=== PATIENT | male | born 1945 | race Caucasian/White ===

== ENCOUNTER 2020-09-25 08:52 | Outpatient (CLI) | payer MEDICARE, OTHER, SELFPAY ==
--- NOTE | ~2020-09-25 | CT_ITS ---
EXAMINATION: CT soft tissue neck w con EXAM DATE: 09/25/2020 10:06 INDICATION: Right lateral neck swelling over 6 months TECHNIQUE: Spiral CT of the neck was performed following intravenous injection of 75 mL Omnipaque 350 . Axial, coronal and sagittal images were reviewed. The dose-length product (DLP) for this examinat ion was 503.51 mGy-cm. The exposure was tailored according to patient size (auto mA exposure control ), and iterative reconstruction (ASIR) was used as additional dose reduction technique. There is no prior study for comparison. FINDINGS: There is a heterogeneously enhancing mass centered posterior to the right carotid bifurcati on, most likely a pathologically enlarged lymph node, measuring 5.4 x 3.1 x 7 cm. Paraganglioma typic ally would be expected to demonstrate more robust enhancement. No other cervical masses. The thyroid gland is unremarkable. The submandibular and parotid glands a re symmetric. The superior mediastinum is unremarkable. The airway is unremarkable. Parapharyng eal and pre-glottic fat planes are preserved. The opacified vasculature is patent. The orbits are unremarkable. Visualized sinuses and mastoid air cells are well aerated. Some advanced right mid cervical facet arthropathy. Lung apices are clear. IMPRESSION: Right neck mass most likely pathologically enlarged lymph node from malignancy, but ultra sound-guided biopsy recommended. Reviewed, dictated and finalized at location A. IMPRESSION: Right neck mass most likely pathologically enlarged lymph node from malignancy, but ultrasound-guided biopsy recommended.
[2020-09-25 09:57] LABS: Estimated Glomerular Filt Rate > 60
== END 2020-09-25 08:53 | disposition home or self-care (01) ==
LOC: ANHIMG 09:03
PROVIDERS: PCP Family Medicine; Visit Provider Family Medicine
DX: R22.1 Localized swelling, mass and lump, neck (principal)
CPT/HCPCS: 70491; Q9967

== ENCOUNTER 2020-10-10 12:54 | Outpatient (CLI) | payer MEDICARE, OTHER, SELFPAY ==
--- NOTE | ~2020-10-10 | US_ITS ---
EXAMINATION: US biopsy lymph node DATE: 10/10/2020 14:02 INDICATION: Right neck mass. TECHNIQUE: The procedure including the risks and benefits was discussed with the patient. Risks discu ssed included bleeding and infection. The patient understood the risks and agreed to proceed. The sk in overlying the right neck posterior inferior to the angle of the mandible was prepped and draped in usual sterile fashion. Anesthetic was administered with 1% lidocaine subcutaneously. An 14 gauge c ore biopsy needle was advanced under continuous ultrasound observation to the lesion of interest. 5 core biopsy specimens were obtained at 2 placed in formalin and 3 in RPMI media. The needle was juan m stefano and the entry site was cleaned and dressed. Post procedure ultrasound demonstrated no hemorrhage . FINDINGS: Ultrasound images demonstrate a 6.7 x 5.7 x 2.8 cm hypoechoic mass at the region of concern corresponding to the size and location of the mass on prior CT performed 09/25/2020. Subsequent image demonstrates the biopsy needle advanced into the mass. IMPRESSION: 1. Successful Ultrasound-guided biopsy of a 6.7 cm right neck mass suspicious for either lymphoma or metastatic lymphadenopathy. Reviewed, dictated and finalized at location A. IMPRESSION: 1. Successful Ultrasound-guided biopsy of a 6.7 cm right neck mass suspicious f or either lymphoma or metastatic lymphadenopathy.
== END 2020-10-10 12:55 | disposition home or self-care (01) ==
LOC: ANHIMG 12:57
PROVIDERS: PCP Family Medicine; Visit Provider Surgery
DX: R22.1 Localized swelling, mass and lump, neck (principal)
CPT/HCPCS: 38505; 76942; 88305; 88342

== ENCOUNTER 2020-10-20 02:40 | Day surgery (SDC) | payer MEDICARE, OTHER, SELFPAY ==
[2020-10-13 14:08] VITALS: BMI 26.5
--- NOTE | 2020-10-20 06:30 | PM.HPGS ---
History of Present Illness History of Present Illness Consent: Risks, benefits, and alternatives have been discussed and questions answered. Patient agrees to proceed with procedure. Chief complaint: dysphagia Narrative: Nicola Pavon is a 75 year old male Who has had dysphagia for solid food for the last couple months. Lately he can tolerate serial scrambled eggs and other soft foods such as soup. He also was found to have a mass in his neck. Biopsies have been done that revealed it to be a schwannoma. Review of Systems Review of Systems: All systems reviewed & are unremarkable except as noted in HPI and below PMFSH Social History Social History Smoking status: Never smoker Alcohol intake: current Drinks per week: 2 Alcohol use details: beer Substance use: never Substance use type: does not use Living arrangements: with family Gender identity (if verbalized by the patient): Male Spiritual care concerns: No Agree to blood products: Yes Meds Home Medications and Allergies Home Medications Medication Instructions Recorded Confirmed Type No Home Medications 10/13/20 10/20/20 History Allergies Allergy/AdvReac Type Severity Reaction Status Date / Time No Known Allergies Allergy Verified 10/20/20 12:12 Exam Const: General: alert Orientation/consciousness: patient oriented x3 Resp: Auscultation: clear to auscultation bilaterally Cardio: Rhythm: regular rhythm GI: GI Palp: Yes Soft to palpation and No Tenderness to palpation present (GI) Neuro: General: patient oriented x3 Assessment and Plan Assessment and plan (1) Esophageal dysphagia: Code(s): R13.19 - Other dysphagia Status: Acute Assessment and Plan: EGD with possible biopsy or dilatation or cautery.
[2020-10-20 12:13] VITALS: BP 131/61; PULSE 85; RESP 18; TEMP 36.4; O2SAT 99; BMI 26.2
[2020-10-20] MEDS: LACTATED RINGERS 1,000 ML 150 ML IV CONT (12:30)
--- NOTE | 2020-10-20 12:30 | P.PNAN_ITS ---
Anes - Initial Pre Proc Eval Procedure: Operation Date: 10/20/20 13:30 Proposed Procedures p Esophagogastroduodenoscopy - Clemente Cody MD Date/Time: 10/20/20 12:30 Surgeon: Clemente oCdy MD Pre Op Diagnosis: dysphagia Patient Data Age: 75 Gender: M Height: 1.78 m Weight: 82.8 kg Last Vital Signs Temp 36.4 C 10/20/20 12:13 Pulse 85 10/20/20 12:13 Resp 18 10/20/20 12:13 BP 131/61 10/20/20 12:13 Pulse Ox 99 10/20/20 12:13 Allergies Allergy/AdvReac Type Severity Reaction Status Date / Time No Known Allergies Allergy Verified 10/20/20 12:12 Home Medications Medication Instructions Recorded Confirmed Type No Home Medications 10/13/20 10/20/20 History Patient hx anesthesia problems: none Family hx anesthesia problems: none [facility] Social History Social History Smoking status: Never smoker Alcohol intake: current Drinks per week: 2 Alcohol use details: beer Substance use: never Substance use type: does not use Living arrangements: with family Gender identity (if verbalized by the patient): Male Spiritual care concerns: No Agree to blood products: Yes Anes - Eval Final PreProcedure Day of Procedure 10/20/20 12:30 Patient weight: overweight Heart: regular rate and rhythm Lungs: clear to auscultation Airway: Mallampati scale class II Neurological: alert and oriented Last oral intake: >/= 8 hours ASA classification: II Emergent: no Anesthetic plan: proceed Anesthesia type and monitoring: general GIVS and standard monitoring Informed Consent: The patient's anesthetic plan and its attendant risks and benefits were discussed with the patient/family/POA. Questions were solicited and answers provided to the satisfaction of the patient/family/POA.
[2020-10-20 13:06] VITALS: BP 120/64; PULSE 62; RESP 25; O2SAT 97
[2020-10-20 13:16] VITALS: BP 124/76; PULSE 62; RESP 21; O2SAT 98
[2020-10-20 13:26] VITALS: BP 127/75; PULSE 64; RESP 18; O2SAT 99
== END 2020-10-20 13:44 | disposition home or self-care (01) ==
PROVIDERS: PCP Family Medicine; Visit Provider Internal Medicine Gastroenterology
PROC: 0DJ08ZZ Inspection of Upper Intestinal Tract, Via Natural or Artificial Opening Endoscopic (ICD-10-PCS; CPT 43235; principal; 2020-10-20 13:30)
DX: R13.19 Other dysphagia (principal); C15.5 Malignant neoplasm of lower third of esophagus
CPT/HCPCS: 43239; 88305; 88342; J2704; J7120

== ENCOUNTER 2022-04-16 00:22 | Day surgery (SDC) | payer MEDICARE, OTHER, SELFPAY ==
[2022-04-05 14:15] VITALS: BMI 29.6
--- NOTE | 2022-04-15 15:00 | PM.HPGS ---
History of Present Illness History of Present Illness Consent: Risks, benefits, and alternatives have been discussed and questions answered. Patient agrees to proceed with procedure. 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 He finishes treatment last year. He comes in now for reassessment for recurrent or persistent disease. Review of Systems Review of Systems: All systems reviewed & are unremarkable except as noted in HPI and below PMFSH Past Medical History Medical History Esophageal cancer, stage IA Peripheral neuropathy Social History Social History Smoking status: Never smoker Alcohol intake: current Drinks per week: 2 Alcohol use details: beer Substance use: never Substance use type: does not use Living arrangements: with family Occupation/Education: retired Gender identity (if verbalized by the patient): Male Sexual Orientation (if Verbalized by the Patient): Straight or Heterosexual Spiritual care concerns: No Agree to blood products: Yes Meds Home Medications and Allergies Home Medications Medication Instructions Recorded Confirmed Type trastuzumab 420 mg intravenous 250 mg IV .Every 3 weeks 03/30/22 04/05/22 History solution Allergies Allergy/AdvReac Type Severity Reaction Status Date / Time No Known Allergies Allergy Verified 04/05/22 14:14 Exam Const: General: alert Orientation/consciousness: patient oriented x3 Resp: Auscultation: clear to auscultation bilaterally Cardio: Rhythm: regular rhythm GI: GI Palp: Yes Soft to palpation and No Tenderness to palpation present (GI) Neuro: General: patient oriented x3 Assessment and Plan Assessment and plan (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
[2022-04-16 11:06] VITALS: BP 132/68; PULSE 77; RESP 20; TEMP 36.1; O2SAT 98
[2022-04-16] MEDS: LACTATED RINGERS 1,000 ML 150 ML IV CONT (11:10)
--- NOTE | 2022-04-16 11:52 | WPDANESEPPF ---
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 Patient Data Age: 76 Gender: M Height: 1.75 m Weight: 21.8 kg Last Vital Signs Temp 97.0 F L 04/16/22 11:06 Pulse 77 04/16/22 11:06 Resp 20 04/16/22 11:06 BP 132/68 04/16/22 11:06 Pulse Ox 98 04/16/22 11:06 O2 Del Method Room Air 04/16/22 11:06 Allergies Allergy/AdvReac Type Severity Reaction Status Date / Time No Known Allergies Allergy Verified 04/05/22 14:14 Home Medications Medication Instructions Recorded Confirmed Type trastuzumab 420 mg intravenous 250 mg IV .Every 3 weeks 03/30/22 04/05/22 History solution Patient hx anesthesia problems: none Family hx anesthesia problems: none Results Review: All pre-operative results and documents have been reviewed as part of the pre-operative evaluation. COUNTS INCLUDE 234 BEDS AT THE [facility] Past Medical History Medical History Esophageal cancer, stage IA Peripheral neuropathy Social History Social History Smoking status: Never smoker Alcohol intake: current Drinks per week: 2 Alcohol use details: beer Substance use: never Substance use type: does not use Living arrangements: with family Occupation/Education: retired Gender identity (if verbalized by the patient): Male Sexual Orientation (if Verbalized by the Patient): Straight or Heterosexual Spiritual care concerns: No Agree to blood products: Yes Anes - Eval Final PreProcedure Day of Procedure 04/16/22 11:52 Patient weight: obese Heart: regular rate and rhythm Lungs: clear to auscultation Airway: Mallampati scale class II Neurological: alert and oriented Last oral intake: >/= 8 hours ASA classification: III Emergent: no Anesthetic plan: proceed Anesthesia type and monitoring: general GIVS and standard monitoring Results Review: All pre-operative results and documents have been reviewed as part of the pre-operative evaluation. Informed Consent: The patient's anesthetic plan and its attendant risks and benefits were discussed with the patient/family/POA. Questions were solicited and answers provided to the satisfaction of the patient/family/POA.
[2022-04-16 12:50] VITALS: BP 145/79; PULSE 73; RESP 28; O2SAT 100
[2022-04-16 13:00] VITALS: BP 148/85; PULSE 75; RESP 24; O2SAT 98
[2022-04-16 13:10] VITALS: BP 148/77; PULSE 64; RESP 22; O2SAT 97
== END 2022-04-16 13:15 | disposition home or self-care (01) ==
PROVIDERS: PCP Family Medicine; Visit Provider Internal Medicine Gastroenterology
PROC: 0DJ08ZZ Inspection of Upper Intestinal Tract, Via Natural or Artificial Opening Endoscopic (ICD-10-PCS; CPT 43235; principal; 2022-04-16 12:30)
DX: Z08 Encounter for follow-up examination after completed treatment for malignant neoplasm (principal); K22.2 Esophageal obstruction; K44.9 Diaphragmatic hernia without obstruction or gangrene; Z85.01 Personal history of malignant neoplasm of esophagus; E66.9 Obesity, unspecified; Z68.30 Body mass index [BMI] 30.0-30.9, adult; Z92.21 Personal history of antineoplastic chemotherapy; Z92.3 Personal history of irradiation
CPT/HCPCS: 43249; 88305; C1726; J2704; J7120

== ENCOUNTER 2022-10-25 00:15 | Day surgery (SDC) | payer MEDICARE, OTHER, SELFPAY ==
[2022-10-13 10:21] VITALS: BMI 30.2
--- NOTE | 2022-10-25 06:45 | PM.HPGS ---
History of Present Illness History of Present Illness Consent: Risks, benefits, and alternatives have been discussed and questions answered. Patient agrees to proceed with procedure. 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 He has been treated by Dr. Kike Willis. A recent CT scan shows a possible recurrence in the distal esophagus. 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 Review of Systems Review of Systems: All systems reviewed & are unremarkable except as noted in HPI and below PMFSH Past Medical History Medical History Esophageal cancer, stage IA Peripheral neuropathy Social History Social History Smoking status: Never smoker Second hand tobacco smoke exposure: No Alcohol intake: current Drinks per week: 2 Alcohol use details: BEER Substance use: never Substance use type: does not use Living arrangements: with family Occupation/Education: retired Gender identity (if verbalized by the patient): Male Sexual Orientation (if Verbalized by the Patient): Straight or Heterosexual Spiritual care concerns: No Agree to blood products: Yes Meds Home Medications and Allergies Home Medications Medication Instructions Recorded Confirmed Type trastuzumab 420 mg intravenous 250 mg IV .EVERY 4 WEEKS 03/30/22 10/25/22 History solution Allergies Allergy/AdvReac Type Severity Reaction Status Date / Time No Known Allergies Allergy Verified 10/25/22 12:52 Exam Const: General: alert Orientation/consciousness: patient oriented x3 Resp: Auscultation: clear to auscultation bilaterally Cardio: Rhythm: regular rhythm GI: GI Palp: Yes Soft to palpation and No Tenderness to palpation present (GI) Neuro: General: patient oriented x3 Assessment and Plan Assessment and plan (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
[2022-10-25 12:54] VITALS: BP 139/65; PULSE 78; RESP 17; TEMP 36.8; O2SAT 95; BMI 29.8
[2022-10-25] MEDS: LACTATED RINGERS 1,000 ML 150 ML IV CONT (13:03)
--- NOTE | 2022-10-25 13:04 | P.PNAN_ITS ---
Anes - Initial Pre Proc Eval Procedure: Operation Date: 10/25/22 14:15 Proposed Procedures p Esophagogastroduodenoscopy - Clemente Cody MD Date/Time: 10/25/22 13:04 Surgeon: Clemente Cody MD Pre Op Diagnosis: primary adenocarcinoma of distal third of esophagu Patient Data Age: 77 Gender: M Height: 1.78 m Weight: 94.3 kg Last Vital Signs Temp 36.8 C 10/25/22 12:54 Pulse 78 10/25/22 12:54 Resp 17 10/25/22 12:54 BP 139/65 10/25/22 12:54 Pulse Ox 95 10/25/22 12:54 O2 Del Method Room Air 10/25/22 12:54 Allergies Allergy/AdvReac Type Severity Reaction Status Date / Time No Known Allergies Allergy Verified 10/25/22 12:52 Home Medications Medication Instructions Recorded Confirmed Type trastuzumab 420 mg intravenous 250 mg IV .EVERY 4 WEEKS 03/30/22 10/25/22 History solution Patient hx anesthesia problems: none Family hx anesthesia problems: none Results Review: All pre-operative results and documents have been reviewed as part of the pre- operative evaluation. [facility] Past Medical History Medical History Esophageal cancer, stage IA Peripheral neuropathy Social History Social History Smoking status: Never smoker Second hand tobacco smoke exposure: No Alcohol intake: current Drinks per week: 2 Alcohol use details: BEER Substance use: never Substance use type: does not use Living arrangements: with family Occupation/Education: retired Gender identity (if verbalized by the patient): Male Sexual Orientation (if Verbalized by the Patient): Straight or Heterosexual Spiritual care concerns: No Agree to blood products: Yes Anes - Eval Final PreProcedure Day of Procedure 10/25/22 13:04 Patient weight: overweight Heart: regular rate and rhythm Lungs: clear to auscultation Airway: Mallampati scale class II Neurological: alert and oriented Last oral intake: >/= 8 hours ASA classification: III Emergent: no Anesthetic plan: proceed Anesthesia type and monitoring: general GIVS and standard monitoring Results Review: All pre-operative results and documents have been reviewed as part of the pre- operative evaluation. Informed Consent: The patient's anesthetic plan and its attendant risks and benefits were discussed with the patient/family/POA. Questions were solicited and answers provided to the satisfaction of the patient/family/POA.
[2022-10-25 14:32] VITALS: BP 132/86; PULSE 70; RESP 24; O2SAT 95
[2022-10-25 14:42] VITALS: BP 136/78; PULSE 70; RESP 22; O2SAT 99
[2022-10-25 14:52] VITALS: BP 142/79; PULSE 61; RESP 18; O2SAT 99
== END 2022-10-25 15:00 | disposition home or self-care (01) ==
PROVIDERS: PCP Family Medicine; Visit Provider Internal Medicine Gastroenterology
PROC: 0DJ08ZZ Inspection of Upper Intestinal Tract, Via Natural or Artificial Opening Endoscopic (ICD-10-PCS; CPT 43235; principal; 2022-10-25 14:15)
DX: K22.2 Esophageal obstruction (principal); C16.0 Malignant neoplasm of cardia; G62.9 Polyneuropathy, unspecified; Z79.899 Other long term (current) drug therapy
CPT/HCPCS: 43239; 88305; J2704; J7120

== ENCOUNTER 2022-10-27 00:55 | Day surgery (SDC) | payer MEDICARE, OTHER, SELFPAY ==
[2022-10-14 13:14] VITALS: BMI 30.2
--- NOTE | 2022-10-14 13:23 | PC.NURSE ---
Report to the Outpatient Waiting Room, entrance under the green pavilion located off [facility], at time _0600_ on date _10/27/22_. Planned Procedure Time: _0730_. Time changes happen often and if your time is changed the preop area will call you the afternoon before. - You and your visitor will be asked to self-screen and do not enter if you have any COVID symptoms. - A mask is optional within the hospital at this time. Patients may have clear liquids (water, carbonated beverages, clear teas, apple juice) until 3 hours prior to surgery (0430 AM) with a maximum of 20 ounces. - No food from midnight until time of surgery - Infants may have breast milk until 4 hours before surgery, infant formula 6 hours prior to surgery. - Children will be allowed to drink immediately following surgery. If applicable, please bring a bottle or sippy cup to assist with drinking. Juice, water, soda, and popsicles are readily available. For infants on formula, please bring formula the day of surgery. Pacifiers are allowed. Take the following medications with a SIP of water the morning of surgery: NONE DO NOT STOP ANY OF YOUR OTHER PRESCRIPTION MEDICATIONS PRIOR TO SURGERY ?EXCEPT THE FOLLOWING Medications to discontinue per physician N/A Date to take last dose Please no make-up, nail pakistani, hairspray, perfume, deodorant, or body powder the day of surgery. No jewelry (including any body piercings) or valuables the day of surgery, leave them at home. Please take a shower or bath the night before, or the morning of, surgery with an antibacterial soap. Wear comfortable, loose fitting clothing. Children are encouraged to wear pajamas. - Jewelry must be removed prior to entering the operating room. Rings and piercings that are not removed may be cut off. - The hospital will not accept responsibility for valuables. - Please leave all valuables, including medications, at home the day of surgery. If you are going home after surgery, a licensed limo driver must drive you home. - NO public transportation without another adult if you receive anesthesia. - We recommend that an adult stay with you for 24 hours following discharge. - We also recommend that you do not drive, make important decision, drink alcoholic beverages, or take any drugs that were not prescribed by your health care provider for at least 24 hours after your discharge time. For Pediatric surgeries, we recommend two adults accompany the child home. Follow any additional instructions given to you from your surgeon. If you or anyone in your household have experienced Covid symptoms in the past week, please notify your surgeon or the nurse liaison at the phone number below for possible testing. Telephone instructions given to _PT'S SPOUSE GISELE__and asked if any additional questions and then verbalized understanding. Patient advised to call surgeon office or pre surgery nurse liaison [phone] if any additional questions.
[2022-10-27] VITALS (8 sets, daily range): BP systolic 127–141; BP diastolic 54–75; PULSE 66–84; RESP 14–16; TEMP 36.1–36.4; O2SAT 97–100
[2022-10-27] MEDS: LACTATED RINGERS 1,000 ML 30 ML IV CONT ×2 (06:30→09:51)
--- NOTE | 2022-10-27 07:12 | WPDHPUPDATE1 ---
History and Physical Update Update Date/Time: 10/27/22 07:12 History and Physical has been reviewed, including an updated exam of the patient. There are NO changes in the patient's condition. Risks, benefits, and alternatives have been discussed and questions answered. Patient agrees to proceed with procedure.
--- NOTE | 2022-10-27 07:17 | P.PNAN_ITS ---
Anes - Initial Pre Proc Eval Procedure: Operation Date: 10/27/22 07:30 Proposed Procedures p Left Partial Palmar Fasciectomy - Fox Huizar MD Date/Time: 10/27/22 07:17 Surgeon: Fox Huizar MD Pre Op Diagnosis: Dupuytren's contracture left small finger Patient Data Age: 77 Gender: M Height: 1.78 m Weight: 94.5 kg Last Vital Signs Temp 36.1 C L 10/27/22 06:10 Pulse 66 10/27/22 06:10 Resp 16 10/27/22 06:10 BP 139/75 10/27/22 06:10 Pulse Ox 97 10/27/22 06:10 O2 Del Method Room Air 10/27/22 06:10 Allergies Allergy/AdvReac Type Severity Reaction Status Date / Time No Known Allergies Allergy Verified 10/27/22 06:03 Home Medications Medication Instructions Recorded Confirmed Type trastuzumab 420 mg intravenous 250 mg IV .EVERY 4 WEEKS 03/30/22 10/27/22 History solution Patient hx anesthesia problems: none Family hx anesthesia problems: none Results Review: All pre-operative results and documents have been reviewed as part of the pre- operative evaluation. [facility] Past Medical History Medical History Esophageal cancer, stage IA Peripheral neuropathy Social History Social History Smoking status: Never smoker Second hand tobacco smoke exposure: No Alcohol intake: current Drinks per week: 2 Alcohol use details: BEER Substance use: never Substance use type: does not use Living arrangements: with family Occupation/Education: retired Gender identity (if verbalized by the patient): Male Sexual Orientation (if Verbalized by the Patient): Straight or Heterosexual Spiritual care concerns: No Agree to blood products: Yes Anes - Eval Final PreProcedure Day of Procedure 10/27/22 07:17 Patient weight: overweight Heart: regular rate and rhythm Lungs: clear to auscultation Airway: Mallampati scale class III Neurological: alert and oriented Last oral intake: >/= 8 hours ASA classification: III Emergent: no Anesthetic plan: proceed Anesthesia type and monitoring: general GIVS and standard monitoring Results Review: All pre-operative results and documents have been reviewed as part of the pre- operative evaluation. Informed Consent: The patient's anesthetic plan and its attendant risks and benefits were discussed with the patient/family/POA. Questions were solicited and answers provided to the satisfaction of the patient/family/POA.
[2022-10-27] MEDS: LIDO 1%/EPINEPHRINE 1:100,000 50 ML VIAL INFILTRATE (07:43)
[2022-10-27] MEDS: ceFAZolin SODIUM 1 GM VIAL 2 GM IV PUSH (08:49)
[2022-10-27] MEDS: BACITRACIN OINTMENT 15 GM TUBE 1 APPLIC TOPICAL (09:32)
[2022-10-27] MEDS: oxyCODONE HCL (*CRX) 5 MG TAB IR PO (10:45)
--- NOTE | 2022-10-27 11:45 | W.PM.PROC2 ---
Procedure Note - Detailed Date of Procedure 10/27/22 Pre-op Diagnosis Dupuytren's contracture left small finger Post-op Diagnosis Same Procedure Performed Left partial palmar fasciectomy with proximal interphalangeal joint capsule release and full-thickness skin graft 2 sq cm Surgeon Fox Huizar MD [employer] [facility] Anesthesia MAC Description of Procedure The contractures in the left hand at the small finger site were marked with the patient's consent in the holding area. He was then taken to the operating room where he was placed supine on the operating table. He was given the IV sedation. The left upper extremity was prepped and draped in usual fashion. The tourniquet was applied at the arm. The extremity was exsanguinated with an Chon wrap and the tourniquet inflated to 250 mmHg. Several markings were made for incisions these were in general transverse and approximately 1 cm in length. All these areas were infiltrated with 1% lidocaine with epinephrine. Incisions in the palm done 1st with the dissection and resection of portions of the cord done at several sites. Once made, some immediate improvement in the metacarpophalangeal contracture was noted. The same approach was used on the finger over the proximal phalanx at 2 sites to identify subcutaneous cords and separate them from the nerves and lysed. Again sections of the cord were removed. To release the proximal interphalangeal joint diagonal incisions were made and resection of lateral cords made modest improvement in the flexion contracture. There was no significant central cord and I did not identify any spiral cords. We transected and or removed all of the cords that were identifiable. The remaining proximal interphalangeal flexion was considerable at roughly 60?. A transverse incision over the flexor tendon sheath was made this the did not provide significant improvement. Release of the A3 carmen at its dorsal attachments to the volar plate provided access to the joint capsule and volar plate. The check rein ligaments were incised on both sides and this allowed passive extension to 0?. This however did produce some instability of the proximal interphalangeal joint causing a passively inducible swan-neck deformity. No additional resection was required. At this point the skin envelope was noted to be insufficient for closure and I went ahead to harvest the full-thickness graft from the proximal left volar forearm. This was anesthetized incised and graft defatted and placed onto the wound temporarily. The donor site was undermined and the wound closed with intradermal 4-0 Vicryl and glue. The graft was carefully inset and additional sutures were placed were the prior incisions had been made. Full coverage of the subcutaneous tissue and the flexor tendon were achieved. This did require some rearrangement of subcutaneous tissue to provide coverage over the flexor tendon prior to placement of the skin graft. I took care not to ligate the digital nerve. The tourniquet was released prior to complete closure there was no significant bleeding. The wound was dressed with bacitracin ointment Xeroform gauze 4x4s 2 in Kerlix roll 1 in Coban over the finger and palm and 3 in Chon wrap for the forearm and palm he is discharged from the operating room stable condition 0 tourniquet time was 65 minutes. We will discharge him with some Keflex for 5 days and hydrocodone 5/325 7. He was given 2 g of Ancef IV intraoperatively. Estimated Blood Loss 5 Tourniquet Time 65 Drains No Packing No Pathology None sent Complications No immediate complications Condition Stable Disposition PACU
== END 2022-10-27 11:40 | disposition home or self-care (01) ==
PROVIDERS: PCP Family Medicine; Visit Provider Plastic Surgery
PROC: (CPT 26045; principal; 2022-10-27 07:30)
DX: M72.0 Palmar fascial fibromatosis [Dupuytren] (principal); C15.9 Malignant neoplasm of esophagus, unspecified; Z79.899 Other long term (current) drug therapy
CPT/HCPCS: 26123; A9270; J0690; J1100; J2250; J2371; J2405; J2704; J3010; J7120